=== PATIENT | female | born 1980 | race Caucasian/White ===

== ENCOUNTER → 2016-12-26 | Outpatient (CLI) | payer OTHER ==
--- NOTE | 2016-12-27 06:39 | PAP/PSG TECHNICIAN REPORT ---
[facility] [employer] Polysomnogram Report Study name: None Report date: 12/27/2016 Study date: 12/26/2016 Referring Physician: DR. ROSEMARIE WORTHY Name: SARAH SONG Interpreting Physician: Toni Manley D.O. Date of : 1980 [employer]: Bianca Bentley [facility]. Sex: Female Age: 36 Study Type: PSG Weight: 112 lbs Height: 36 years, Height 5' 5" BMI: 18.64 Medications: VIT D3 [id number] UNIT, CUTIVATE 0.05% EX CREAM, LEVOTHYROXINE 88MCG Patient History 36 yr-old female here for a baseline study. She has a history of excessive daytime sleepiness, need for taking naps, falling asleep at inappropriate times. Her [place] scale is 8. The test was started on room air. ETCO2 testing was not utilized during this study. Room 1 Parameters Monitored NPSG: E1-M2, E2-M1, Fp1-M2, Fp2-M1, F3-M2, F4-M2, F4-M1, C3-M2, C4-M2, C4-M1, O1-M2, O2-M2, O2-M1, T3-M2, T4-M1, P3-M2, P4-M1, CHIN1, CHIN2, HR, EKG, Legs, PFLOW, SNOR, FLOW, CFLOW, Tidal Volume, THOR, ABDO, SpO2, PLTH, CPRESS, ETCO2 Wave, ETCO2, pH Sleep Architecture Sleep Stages Time at Lights Off 10:23:43 PM STAGES Time (min.) TST (%) Time at Lights On 5:49:43 AM Wake 97.0 -- Total Recording Time (TRT) 446.00 min. N1 40.5 12 Total Sleep Period (TSP) 431.0 min. N2 214.0 61 Total Sleep Time (TST) 349.0min. N3 40.5 12 Awake Time 97.0 min. REM 54.0 15 Wake after Sleep Onset 82.0 min. Sleep Efficiency (SE) 78 % Sleep Onset Latency (TRACEE) 15.0 min. Number of Stage 1 Shifts None Awakenings 9 Stage Changes 67 Number of REM periods 2 REM 54.0 15 REM Latency 136.0 min. NREM 295.0 85 Body Position Analysis Supine Right Left Side Prone Vertical Total Sleep Time (min.) 229.1 172.8 0.0 172.83 0.0 0.0 Total Sleep Time (%) 50% 50% 0% 50 0% N/A% Total Sleep Time REM (min.) 54.0 0.0 0.0 None 0.0 0.0 Total Sleep Time NREM (min.) 122.2 172.8 0.0 None 0.0 0.0 Intermittent Wake (min.) 52.9 44.1 0.0 None 0.0 0.0 Total Sleep Period (%) 53% None None None None None Arousals Myoclonus (PLM) * Events Count Index Events Count Index Spontaneous 47 8 Events Awake (PLMW) 30 18.6 Respiratory 2 0.3 Events Asleep w/ Arousal (PLMA) 10 1.7 PLM 10 2 Events Asleep w/o Arousal (PLMS) 89 15.3 Snoring 13 2 Total Asleep 99 17.0 Total 72 12 Total 129 17 Respiratory Analysis * CA OA MA CH H RERA Total Count 0 0 0 0 6 0 6 Index 0.0 0.0 0.0 0 1.0 0 1.0 Mean Duration 0.0 0.0 0.0 0.00 20.4 0.0 20.4 Longest Duration 0.0 0.0 0.0 0.00 0.0 0.0 23.7 Respiratory Event Summary Total Supine ~Supine Right Left Prone REM NREM Apneas Count 0 0 0 0 N/A N/A 0 0 Index 0.0 0 0 0.0 N/A N/A 0 0 Hypopneas (4% Desat) Count 6 6 0 0 N/A N/A 4 2 Index 1.0 2.0 0 0.0 N/A N/A 4.4 0.4 Apneas & All Hypopneas Count 6 6 0 0 N/A N/A 4 2 Index 1.0 2 0 0 N/A N/A 4.4 0.4 Respiratory Events ([employer]+All Hyp+RERA) Count 6 6 0 0 N/A N/A 4 2 Index 1.0 2 0 0.0 N/A N/A 4.4 0.4 Respiratory Related Arousal Count 2 6 0 0 N/A N/A 0 2 Index 0.3 1 0 0 N/A N/A 0 0 Snoring Analysis Supine Right Left Prone REM NREM Total Snore duration 12.8 min Snores count 484 37 N/A N/A 51 470 521 Snore mean duration 1.5 Sec Snores index 165 13 N/A N/A 56.7 95.6 89.6 TST with snoring (%) 3.7% Desaturation Event Summary: Minimum %SpO2 Event Count Mean/Min/Max Duration(sec.) Desaturation Index % Time In Bed > 90 10 24.8 / 8.8 / 60.0 1.5 99.9 86 - 90 0 N/A 0.0 0.0 81 - 85 0 N/A 0.0 0.0 76 - 80 0 N/A 0.0 0.1 71 - 75 0 N/A 0.0 0.0 66 - 70 0 N/A 0.0 0.0 61 - 65 0 N/A 0.0 0.0 56 - 60 0 N/A 0.0 0.0 51 - 55 0 N/A 0.0 0.0 < 50 0 N/A 0.0 0.0 Total REM NREM Awake <50% 0.0 min. 0.0 min. 0.0 min. 0.0 min. 51 - 60% 0.0 min. 0.0 min. 0.0 min. 0.0 min. 61 - 70% 0.0 min. 0.0 min. 0.0 min. 0.0 min. 71 - 80% 0.2 min. 0.0 min. 0.0 min. 0.2 min. 81 - 90% 0.0 min. 0.0 min. 0.0 min. 0.0 min. 91 - 100% 399.0 min. 54.0 min. 295.0 min. 50.0 min. Average 96 96 96 97 Minimum SpO2 80 90 92 80 Desaturation Event Index 1.3 5.6 0.6 1.2 # Desat. Events below 89% 1 N/A N/A 1 Time(%) with Saturation below 89% 0.1 0.0 0.0 0.1 Time(min.) with Saturation below 89% 0.2 0.0 0.0 0.2 Time (mins) REM (mins) NREM (mins) % of TST SpO2 Below 90% N/A N/A NN/A 0.0 SpO2 Below 88% 0 0 0 0 Heart Rate Analysis Min (bpm) Max (bpm) Average (bpm) Awake 50 117 76 NREM 47 117 68 REM 62 104 81 Overall 47 117 70 Supplemental O2 Values Minimum O2 level: None Value Start Time End Time [employer] Comments Ms. Song slept in the right, left, and supine positions. No cardiac arrhythmias were noted. Some PLMs were noted. No bruxism noted. Snoring was noted and scored as a 1 on a scale of 1 through 5. (0=no snoring, 5=snoring loud enough to be heard through a closed door or down the [address] way) She awoke to use the restroom one time during the night. She did have a long wake period at 3:30 am reserved for prayer. She got back to bed at 4:20 am. Ms. Song stated that she slept about the same as usual. The final report will be interpreted and signed by a sleep physician. The completed physician report will then be placed in the patient medical record. Therapy (cm H2O) 0 TIB (min.) 446.0 TST (min.) 349.0 Sleep Onset (min.) 15.0 REM Onset From Sleep (min.) 136.0 Sleep Efficiency % 78 Wakefulness (%) 22 Wakefulness (min.) 97.0 NREM 1 (%) 12 NREM 1 (min.) 40.5 NREM 2 (%) 61 NREM 2 (min.) 214.0 NREM 3 (%) 12 NREM 3 (min.) 40.5 REM (%) 15 REM (min.) 54.0 # Arousals 72 Arousal Index 12 # Snore 521 Snore Index 89.6 AHI 1.0 AHI Supine 2 AHI Non-Supine 0 NREM AHI 0.4 REM AHI 4.4 RDI 1.0 # Obstructive Apnea 0 # Central Apnea 0 # Mixed Apnea 0 # Hypopneas 6 RERAs 0 Total Respiratory Events 7 Time Below SpO2 89% (min.) 0.0 Mean NREM SpO2 (%) 96 Mean REM SpO2 (%) 96 Mean Sleep SpO2 (%) 96 Min NREM SpO2 (%) 92 Min REM SpO2 (%) 90 Position Supine (min.) 229.1 Position Non-supine (min.) 172.8 LM Index Sleep 17.0 LM Index NREM 18.9 LM Index REM 6.7 Mean Heart Rate (bpm) 70 Min Heart Rate (bpm) 47
--- NOTE | 2017-01-02 16:38 | POLYSOMNOGRAPH REPORT ---
The patient is referred by Dr. Chelo Gage via [facility]. CLINICAL DATA: The patient is a 36-year-old female who has a BMI of 18.64. Her history is that of snoring, fatigue and excessive daytime somnolence. Her [place] sleepiness score is 8 out of a possible 24. She has a history of hypothyroidism. This was an in-lab polysomnography. SLEEP ARCHITECTURE: The total sleep period was 431 minutes. The total sleep time was 349 minutes. Sleep efficiency was modestly reduced to 78%. Sleep latency was 15 minutes. Wake after sleep onset was 82 minutes. The REM latency was 136 minutes. Sleep consisted of stage N1 at 12%, stage N2 at 61%, stage N3 at 12%, and stage REM 15%. AROUSAL DATA: The patient had a total of 72 arousals including 47 spontaneous arousals, 2 respiratory arousals, 10 PLM arousals, and 13 snoring arousals. The arousal index was 12. PLM DATA: The patient had a total of 99 periodic limb movements of sleep for an index of 17. There were 10 events with arousals for a PLM arousal index of 1.7. EKG: The underlying cardiac rhythm was normal sinus. The patient had frequent episodes of PACs, oftentimes in runs. She had an episode of 27 beats with an increased heart rate. This was during epoch 326. There were frequent episodes of brief increases in the heart rate, which did not seem to be purely related to respiration. The heart rates ranged from 47 up to 117. RESPIRATORY DATA: The patient had a total of 6 respiratory events, all hypopneas. Hypopneas were scored by the 4% desaturation rule. The apnea hypopnea index was 1.0. This is normal and suggests no significant sleep apnea. OXIMETRY DATA: Oxygen saturation average was 96%. The minimum saturation was 80%, but it was very transient and may have been technical. There was no significant time with saturations less than 90%. FERMENTER HELPER COMMENTS: The patient slept in the right, left, and supine positions. Some PLMs were noted. No bruxism noted. Snoring was noted and scored as a 1 on a scale of 1 through 5. She did have a long wake period at 3:30 a.m. reserved for prayer. She got back to bed at 4:20 a.m. IMPRESSIONS: 1. Periodic limb movement disorder. 2. Cardiac arrhythmia. COMMENTS: The patient had a moderate decrease in sleepy efficiency, but in part this is related to approximately 50 minutes she set aside for prayer. She did have an increase in the spontaneous arousals. She had a modest number of limb movements. There were relatively few arousals associated with these limb movements, however. Thus, the significance of the periodic limb movements is not clear. Oxygenation was normal. The most abnormal finding was the cardiac arrhythmia. The patient is being treated for thyroid problems. It is unknown if this may have affected her cardiac arrhythmia. She is listed as taking levothyroxine. RECOMMENDATIONS: 1. Consideration is given to doing a Holter monitor in light of the episodes of cardiac arrhythmia seen during the study. 2. The patient should be advised of the appropriate principles of sleep hygiene including having a regular sleep-wake schedule and allowing approximately 8 hours of sleep time per night. 3. Clinical correlation is required to determine if she may have restless legs in addition to the periodic limb movements seen during this sleep study. GIL
== END | disposition home or self-care (01) ==
LOC: C.NEUR 20:00
PROVIDERS: ATTEND Internal Medicine
DX: R06.83 Snoring (principal)

== ENCOUNTER → 2017-11-14 | Outpatient (CLI) | payer OTHER | END | disposition home or self-care (01) | LOC: C.PAPS 09:37 | PROVIDERS: ATTEND Obstetrics & Gynecology | DX: Z01.419 Encounter for gynecological examination (general) (routine) without abnormal findings (principal) ==

== ENCOUNTER → 2017-12-06 | Outpatient (CLI) | payer OTHER ==
[2017-12-06 12:01] LABS: FOLLICLE STIMULAT HORMONE 4.98 IU/L; LUTEINIZING HORMONE 4.84 IU/L
== END | disposition home or self-care (01) ==
LOC: C.LAB1850 10:12
PROVIDERS: ATTEND Obstetrics & Gynecology
DX: N93.9 Abnormal uterine and vaginal bleeding, unspecified (principal)